=== PATIENT | female | born 1955 | race Caucasian/White ===

== ENCOUNTER 2021-07-19 11:49 | Emergency (ER) | payer OTHER ==
[~2021-07-19] VITALS: Ht 167.6 cm; Wt 81.7 kg
[~2021-07-19 11:49] MED LIST: ANTIVERT25 MG PO; ASPIRIN EC81 MG PO; FISH OIL 1,0001 EAC3 PO; MOTRIN IB200 MG PO; PERCOCET 7.5-31 EACH PO
--- NOTE | 2021-07-19 14:10 | EKG ---
[facility] [address] [place], [place] [address] Signed Normal sinus rhythm Normal ECG No previous ECGs available Confirmed by BENNETT BURKS MD ([id number] on 07/19/2021 2:09:52 PM Electronically Signed By: BENNETT BURKS MD 07/19/21 1410 PATIENT NAME: TOMEKA MASON Electrocardiogram DATE OF : 57 PHYSICIAN: BENNETT BURKS MD REPORT #: [id number] REPORT IS CONFIDENTIAL AND NOT TO BE RELEASED WITHOUT AUTHORIZATION
== END 2021-07-19 17:00 | disposition home or self-care (01) ==
LOC: ED 11:49
DX: R55 Syncope and collapse (principal); E78.00 Pure hypercholesterolemia, unspecified; Z79.899 Other long term (current) drug therapy; Z79.82 Long term (current) use of aspirin
CPT/HCPCS: 36415; 71260; 80053; 84484; 85025; 93005; 93010; 99284-25; Q9967